=== PATIENT | female | born 1970 | race Caucasian/White ===

== ENCOUNTER 2023-09-04 07:53 | Outpatient (RCR) | payer BC | END 2023-10-02 | disposition home or self-care (01) | LOC: PT | DX: M54.12 Radiculopathy, cervical region (principal) ==

== ENCOUNTER 2023-10-03 08:00 | Outpatient (RCR) | payer BC | END 2023-11-02 | disposition home or self-care (01) | LOC: PT | DX: M54.12 Radiculopathy, cervical region (principal) ==

== ENCOUNTER → 2024-08-23 | Outpatient (CLI) | payer BC ==
[2024-08-24 20:47] LABS: TB GOLD INTERPRETATION.TB GOLD Negative (Negative)
== END ==
LOC: LAB 12:46
PROVIDERS: Internal Medicine Rheumatology
DX: M06.9 Rheumatoid arthritis, unspecified (principal); M25.50 Pain in unspecified joint; M45.7 Ankylosing spondylitis of lumbosacral region; R53.83 Other fatigue; R79.82 Elevated C-reactive protein (CRP)

== ENCOUNTER → 2024-08-31 | Outpatient (CLI) | payer BC ==
[2024-08-31 13:56] LABS: BASO # 0.03 K/mm3 (0.02-0.10); EOS # 0.08 K/mm3 (0.04-0.40); EOS % 1.6 % (1.0-5.0); HEMATOCRIT 40.1 % (37.0-47.0); HEMOGLOBIN 13.1 g/dL (12.5-16.0); LYMPH# 2.05 K/mm3 (1.50-4.00); MEAN CELL VOLUME 93 fl (78-100); MEAN CORPUSCULAR HEMOGLOBIN 31 pg (27-31); MEAN CORPUSCULAR HGB CONC 33 g/dL (33-37); MEAN PLATELET VOLUME 9.5 fl (7.4-10.4); MONO # 0.38 K/mm3 (0.20-0.80); NEU # 2.44 K/mm3 (1.40-6.50); PLATELET COUNT 280 K/mm3 (130-400); RED CELL DISTRIBUTION WIDTH 13.5 % (11.5-14.5)
[2024-08-31 14:03] LABS: ALBUMIN 4.1 g/dL (3.5-5.0)
[2024-08-31 14:05] LABS: CALCIUM 9.1 mg/dL (8.3-10.5)
[2024-08-31 14:06] LABS: TOTAL PROTEIN 7.4 g/dL (6.4-8.3)
[2024-08-31 14:08] LABS: TOTAL BILIRUBIN 0.4 mg/dL (0.2-1.2)
[2024-09-01 01:37] LABS: HEPATITIS B CORE AB TOTAL Negative (Negative); HEPATITIS B SURFACE ANTIGEN Negative (Negative); HEPATITIS C VIRUS ANTIBODY Nonreactive (Nonreactiv)
== END ==
LOC: LAB 13:42
PROVIDERS: Internal Medicine Rheumatology
DX: M06.9 Rheumatoid arthritis, unspecified (principal); M45.7 Ankylosing spondylitis of lumbosacral region; M25.50 Pain in unspecified joint; R53.83 Other fatigue; R79.82 Elevated C-reactive protein (CRP)

== ENCOUNTER → 2024-09-22 | Outpatient (CLI) | payer BC | LOC: MAMMO 08:58 | DX: Z12.31 Encounter for screening mammogram for malignant neoplasm of breast (principal) ==

== ENCOUNTER → 2024-11-09 | Outpatient (CLI) | payer BC ==
[2024-11-09 14:52] LABS: BASO # 0.04 K/mm3 (0.02-0.10); EOS % 1.4 % (1.0-5.0); HEMATOCRIT 42.4 % (37.0-47.0); HEMOGLOBIN 13.8 g/dL (12.5-16.0); LYMPH# 1.71 K/mm3 (1.50-4.00); MEAN CELL VOLUME 93 fl (78-100); MEAN CORPUSCULAR HEMOGLOBIN 30 pg (27-31); MEAN CORPUSCULAR HGB CONC 33 g/dL (33-37); MEAN PLATELET VOLUME 9.2 fl (7.4-10.4); NEU # 4.66 K/mm3 (1.40-6.50); PLATELET COUNT 318 K/mm3 (130-400); RED BLOOD COUNT 4.56 M/mm3 (4.10-5.30); RED CELL DISTRIBUTION WIDTH 13.4 % (11.5-14.5); WHITE BLOOD COUNT 7.1 K/mm3 (4.8-10.8)
[2024-11-09 14:56] LABS: ALBUMIN 4.4 g/dL (3.5-5.0)
[2024-11-09 14:59] LABS: TOTAL PROTEIN 7.7 g/dL (6.4-8.3)
[2024-11-09 15:00] LABS: TOTAL BILIRUBIN 0.4 mg/dL (0.2-1.2)
== END ==
LOC: LAB 14:33
PROVIDERS: Internal Medicine Rheumatology
DX: M45.7 Ankylosing spondylitis of lumbosacral region (principal); M06.4 Inflammatory polyarthropathy; M06.9 Rheumatoid arthritis, unspecified; Z79.899 Other long term (current) drug therapy